=== PATIENT | male | born 1950 | race Caucasian/White ===

== ENCOUNTER 2024-01-09 20:22 | Emergency (ER) | payer MEDICARE, SELFPAY ==
[2024-01-09] VITALS (14 sets, daily range): BP systolic 86–158; BP diastolic 64–94; PULSE 87–102; RESP 16–19; TEMP 36; O2SAT 93–100
--- NOTE | ~2024-01-09 | CT_ITS ---
EXAMINATION: CT facial bones wo con DATE: 01/09/2024 21:55 INDICATION: Head injury. TECHNIQUE: Computed tomography (CT) of the facial bones and maxillofacial region was performed withou t intravenous contrast. Automated exposure control and iterative reconstruction technique were employ ed. The dose-length product was 406.89 mGy-cm. COMPARISON: None. FINDINGS: There is right scalp and right periorbital soft tissue swelling. There are likely changes o f ocular lens replacement surgeries. There is rightward deviation of superior nasal septum and leftwa rd deviation of inferior nasal septum. There is mucosal thickening and fluid in the paranasal sinuses . The mastoid air cells are normal. IMPRESSION: 1. No fracture. Reviewed, dictated and finalized at location A. IMPRESSION: 1. No fracture.
--- NOTE | ~2024-01-09 | CT_ITS ---
EXAMINATION: CT cervical spine wo con DATE: 01/09/2024 21:55 INDICATION: Head injury. TECHNIQUE: Computed tomography (CT) of the cervical spine was performed without intravenous contrast. Automated exposure control and iterative reconstruction technique were employed. The dose-length pro duct was 415.59 mGy-cm. COMPARISON: None FINDINGS: There is 5 degrees dextrocurvature of cervical spine. Vertebral body heights are normal. Th ere is mildly decreased disc height at C3-C4. There is moderately decreased disc height at C5-C6 and C6-C7. The following disc levels are specifically discussed: C2-C3: There is mild right and moderate left uncovertebral joint osteoarthritis. There is moderate ri ght and severe left facet joint osteoarthritis. There is mild left neural foraminal stenosis. There i s no central canal stenosis. C3-C4: There is severe bilateral uncovertebral joint osteoarthritis. There is mild right and severe l eft facet joint osteoarthritis. There is mild bilateral neural foraminal stenosis. There is mild cent ral canal stenosis. C4-C5: There is severe right and moderate left uncovertebral joint osteoarthritis. There is severe bi lateral facet joint osteoarthritis. There is mild bilateral neural foraminal stenosis. There is mild central canal stenosis. C5-C6: There is severe bilateral uncovertebral joint osteoarthritis. There is mild right and moderate left facet joint osteoarthritis. There is moderate bilateral neural foraminal stenosis. There is mod erate central canal stenosis. C6-C7: There is severe bilateral uncovertebral joint osteoarthritis. There is moderate bilateral face t joint osteoarthritis. There is severe bilateral neural foraminal stenosis. There is moderate centra l canal stenosis. C7-T1: There is mild bilateral uncovertebral joint osteoarthritis. There is severe bilateral facet stephanie int osteoarthritis. There is mild bilateral neural foraminal stenosis. There is no central canal sten osis. IMPRESSION: 1. No fracture. 2. Severe cervical spondylosis. Reviewed, dictated and finalized at location A.
--- NOTE | ~2024-01-09 | XR_ITS ---
EXAMINATION: XR abdomen gastric tube insert DATE: 01/09/2024 21:24 INDICATION: Orogastric tube placement. TECHNIQUE: A supine view of the abdomen was obtained. COMPARISON: None. FINDINGS: The lower abdomen is excluded. There is gaseous distention of the stomach. The orogastric t ube tip is in the stomach. IMPRESSION: 1. Orogastric tube tip in the stomach. Reviewed, dictated and finalized at location A.
--- NOTE | ~2024-01-09 | CT_ITS ---
EXAMINATION: CT brain wo con DATE: 01/09/2024 21:55 INDICATION: Unresponsive. Head injury. TECHNIQUE: Computed tomography (CT) of the head was performed without intravenous contrast. The mA wa s adjusted according to patient size. Iterative reconstruction technique was employed. The dose-lengt h product was 681.00 mGy-cm. COMPARISON: None FINDINGS: There is focal peripheral low attenuation in right frontal lobe. There is an infarct in lef t frontal lobe. There is no intracranial hemorrhage or abnormal mass lesion. The ventricles are leonela l in size. There is mucosal thickening in the paranasal sinuses. There are likely changes of ocular l ens replacement surgeries. There is right periorbital soft tissue swelling. There is right-sided scal p soft tissue swelling. The mastoid air cells are normal. IMPRESSION: 1. Peripheral low attenuation in right frontal lobe, likely a contusion. 2. 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 Reviewed, dictated and finalized at location A.
--- NOTE | ~2024-01-09 | CT_ITS ---
EXAMINATION: CT chest abdomen pelvis w con DATE: 01/09/2024 21:56 INDICATION: Trauma. Altered mental status. TECHNIQUE: Computed tomography (CT) of the chest, abdomen, and pelvis was performed with 100 mL Omnip aque 350 intravenous contrast. Automated exposure control and iterative reconstruction technique were employed. The dose-length product was 641.96 mGy-cm. COMPARISON: None FINDINGS: CHEST CT: The lungs demonstrate mild atelectasis in the right. Calcified right lung nodules are consistent with old granulomatous disease. No pleural effusion. The heart size is normal. No pericardial effusion. T he endotracheal tube tip is 5.7 cm above the irene. The nasogastric tube tip is in the stomach. Ther e is moderate thoracic spondylosis. ABDOMEN/PELVIS CT: The liver, gallbladder, pancreas, and adrenal glands are normal. There is cortical thinning in the ki dneys. There are cysts in left kidney measuring up to 16 mm. There is a Javed catheter in expected po sition. The bladder is distended. Stool distends the rectosigmoid. The prostate is mildly enlarged. T he appendix is normal. There are no pathologically enlarged lymph nodes. There is no free intraperito terrance fluid. There is severe lumbar spondylosis. IMPRESSION: 1. Stool distends the rectosigmoid. Reviewed, dictated and finalized at location A.
--- NOTE | ~2024-01-09 | XR_ITS ---
EXAMINATION: XR chest ET placement DATE: 01/09/2024 21:24 INDICATION: Intubation. TECHNIQUE: A single frontal view of the chest was obtained. COMPARISON: None. FINDINGS: There is no pneumonia, pleural effusion, or pneumothorax. The heart size is normal. The end otracheal tube tip is 7.7 cm above the irene. The nasogastric tube tip is in the stomach. IMPRESSION: 1. No acute cardiopulmonary disease. Reviewed, dictated and finalized at location A.
[2024-01-09] MEDS: LORazepam INJ (*CRX) 2 MG/ML VIAL (20:25)
[2024-01-09] MEDS: LORazepam INJ (*CRX) 2 MG/ML VIAL 4 MG ×2 (20:32→20:38)
--- NOTE | 2024-01-09 20:33 | ECG_ITS ---
Measurements Intervals [place] Rate: 86 P: 74 [place]: 175 QRS: -68 QRSD: 118 T: 62 QT: 423 QTc: 507 Interpretive Statements SINUS RHYTHM LEFT ANTERIOR FASCICULAR BLOCK ABNORMAL ECG NO PREVIOUS ECG AVAILABLE FOR COMPARISON Electronically Signed On 01-10-2024 19:40:09 CDT by Kd Caicedo D.O.
[2024-01-09 20:43] LABS: Basophils Percent Auto 0.2 % (0.2-1.2); Hematocrit 45.9 % (42.0-52.0); Hemoglobin 14.4 g/dL (14.0-18.0); Immature Granulocyte Absolute 0.24 K/mm3 (0.00-0.031); Immature Granulocyte Percent A 1.4 % (0-0.5); Lymphocytes Absolute Auto 0.79 K/mm3 (0.9-3.2); Lymphocytes Percent Auto 4.6 % (18.3-44.2); Mean Corpuscular HGB Conc 31.4 g/dl (32-36); Mean Corpuscular Volume 92.4 fl (80-100); Mean Platelet Volume 11.4 fl (7.4-10.4); Monocytes Absolute Auto 1.3 K/mm3 (0.1-0.6); Monocytes Percent Auto 7.8 % (2.6-8.5); Neutrophils Absolute Auto 14.7 K/mm3 (1.3-6.7); Platelet Count Result 220 k/mm3 (150-375); Red Blood Count 4.97 M/mm3 (4.6-6.20); Red Cell Distribution Width 13.9 % (11.5-14.5); White Blood Count 17.1 K/mm3 (4.5-10.0)
[2024-01-09] MEDS: NOREPINEPHRINE 8 MG/D5W 250 ML 8 MG/250 ML BAG 15 MG IV CONT (20:43)
[2024-01-09] MEDS: levETIRAcetam 500MG/NACL 100ML 500 MG/100 ML BAG 400 MG IVPB (20:43)
--- NOTE | 2024-01-09 20:54 | PC.NURSE ---
pt presents with multiple wounds all over the body that appears not new, mostly the right side. pt has a black eye with dried bloody nose, as well as multiple skin tears to the right shoulder, chest, leg, and cheek
[2024-01-09 20:59] LABS: INR 1.1; Prothrombin Time 14.3 Seconds (11.1-14.7)
[2024-01-09 21:02] LABS: Alanine Aminotransferase 91 U/L (6-50); Albumin Level 4.1 g/dL (3.5-5.1); Alkaline Phosphatase 97 U/L (38-126); Anion Gap 28 mmol/L (4-12); Aspartate Amino Transferase 165 U/L (17-59); Bilirubin,Total 0.7 mg/dL (0.2-1.3); Blood Urea Nitrogen 93 mg/dL (9-20); Calcium 9.3 mg/dL (8.4-10.2); Carbon Dioxide 8 mmol/L (22-30); Chloride 105 mmol/L (98-107); Estimated CRCL calculation 21 ml/min; Estimated Glomerular Filt Rate 21; Sodium 141 mmol/L (137-145)
[2024-01-09] MEDS: FENTANYL 2,500MCG/NS250ML(*CRX 2,500 MCG/250 ML BAG IV CONT (21:08)
[2024-01-09] MEDS: PROPOFOL IV EMULSION 100 ML 2.19 MG IV CONT (21:08)
[2024-01-09 21:12] LABS: Glucose 686 mg/dL (65-110)
[2024-01-09] MEDS: SODIUM CHLORIDE 0.9% IV 1,000 ML 999 ML IV CONT (21:20)
[2024-01-09 21:33] LABS: Appearance Urine Clear (Clear); Bacteria Urine None Seen /hpf; Bilirubin Urine Negative (Negative); Blood Urine 3+ (Negative); Color Urine Yellow (Yellow); Glucose Urine UA 3+ mg/dL (Negative); Ketones Urine 2+ mg/dL (Negative); Leukocyte Esterase Ur Negative LEU/UL (Negative); Nitrate Urine Negative (Negative); Non Pathogenic Casts 0-2; Protein Urine 1+ mg/dL (Negative); Specific Grav Ur 1.027 (1.001-1.035); Squamous Epithelial Cell Urine Occasional /hpf (Few); Urobilinogen Urine 0.2 mg/dL (<2.0); WBC Urine 0-5 /hpf (0-3)
[2024-01-09 21:54] LABS: Add Urine Microscopic? YES
[2024-01-09 21:58] LABS: Troponin I 0.028 ng/mL (0.000-0.034)
--- NOTE | 2024-01-09 21:58 | ED.GENADULT ---
HPI - General Adult General Chief complaint: Unspecified Stated complaint: ams Time Seen by Provider: 01/09/24 20:36 History of Present Illness HPI narrative: Patient is a 73-year-old male with history of diabetes, CAD here after being found down unresponsive. Family notes that they last spoke with him about 2 days ago. Today someone went over to his home to invite him to [facility] and he did not answer the door. Another family member went over to the house and broke into the home, he was found pinned behind the door. he was found to be unresponsive, glucose was greater than detected by EMS, eye gel was placed to support respirations and he was brought into the emergency department with bagging respirations. Related Data Home Medications Medication Instructions Recorded Confirmed finasteride 1 mg tablet 1 mg PO DAILY 02/23/23 07/29/23 rivaroxaban 20 mg tablet (Xarelto) 20 mg PO DAILY 02/23/23 07/29/23 sildenafil 100 mg tablet 100 mg PO DAILY PRN 02/23/23 07/29/23 metformin 500 mg tablet 1,000 mg PO BID 07/29/23 07/29/23 Allergies Allergy/AdvReac Type Severity Reaction Status Date / Time No Known Allergies Allergy Unknown Verified 07/29/23 10:19 Review of Systems Review of Systems: ROS unobtainable: Yes unobtainable due to endotracheal tube PMFSH Past Medical History Medical History Arthritis Family History Family History Father Hypertension Heart disease Cerebrovascular accident Mother Hypertension Cancer Sibling Cancer Diabetes mellitus Social History Social History (Updated 07/29/23 @ 10:31 by Heather Jones) Smoking packs per day: 1.5 Smoking cigarettes per day: 30.0 Years smoked: 15 Smoking pack-years: 22.50 Smoking status: Former smoker Alcohol intake: never Substance use: never Lack of Transportation: No Lack of Food: Never True Current Housing: I Have Housing Concerned About Future Housing: No Difficulty Paying Gas/Electric Bills: No Difficulty Paying for Meds: Decline to Answer Currently Unemployed: YES Education: Trade/Vocational Certificate Difficulty w/ Childcare or Family Care: Decline to Answer Exam Narrative: GENERAL: Cachectic, ill-appearing HEAD: Normocephalic EYES: Minimally responsive pupils bilaterally, swelling, erythema in the right periorbital region. ENT: Nares clear. Mucous membranes dry NECK: Supple. CHEST: Bagging respirations via [place] HEART: Regular rate and rhythm. Normal peripheral pulses. ABDOMEN: Soft, nondistended. EXTREMITIES: 2 cm Pressure ulcer present over the left shoulder. SKIN: Warm, dry, multiple areas of skin breakdown from pressure ulcers including a 2x3 cm area over the right cheek which is dark blue in color. NEURO: unresponsive, posturing with bilateral upper and lower extremity Course Course Emergency Course: Patient seen evaluated on EMS arrival. Respirations being bagged be igel airway. Patient appears to have some spontaneously triggered breath over the bagging. Patient placed in a C-collar, on exam multiple episodes of decerebrate posturing vs seizure like activity noted. 3 doses of ativan given, will load with keppra. Patient hypotensive, lowest blood pressure 70s over 50s systolic, multiple doses of push dose epinephrine given to patient pre intubation to improve blood pressure prior to RSI. ET tube placed by myself without difficulty. Patient started on norepinephrine drip, sedation initiated with fentanyl, propofol. Patient taken to CT. At this point I have concern that patient will require transfer to higher level of care in the context of multiple episodes of possible seizure-like activity, need for MRI will a ventilator as well as concern for traumatic injury. Flight team was contacted to be on standby. WBC of 17.1, patient started on vancomycin and cefepime for br
[2024-01-09 22:02] LABS: CRP 8.9 mg/dL (<1.0)
[2024-01-09 22:17] LABS: Creatine Kinase 6762 U/L (55-170)
[2024-01-09 22:28] LABS: Lactic Acid Reflex 1.6 mmol/L (0.7-2.0)
[2024-01-09] MEDS: levETIRAcetam IV 4,500 MG in DEXTROSE 5% 100 ML 870 MG IVPB (22:45)
[2024-01-09 22:47] LABS: Alveolar/Arterial O2 Gradient 98.3 mmHg; Base Excess ABG -19.7 mEq/l (+/-2.0); Fractional Inspired Oxygen 100 %; HCO3 ABG 9.8 mEq/l (22.0-26.0); Oxygen Content ABG 28.2 %vol (16.0-22.0); Oxygen Saturation ABG 99.8 % (95.0-100.0); Oxyhemoglobin 98.3 % THb (90.0-100.0); PCO2 ABG 35.6 mmHg (35.0-45.0); PO2 ABG < 570.0 mmHg (80.0-100.0); PO2 FiO2 Ratio Arterial Blood 5.79 %; Total Hemoglobin 19.3 g/dL (12.0-18.0)
[2024-01-09 22:48] LABS: pH ABG 7.059 (7.350-7.450)
[2024-01-09 22:49] LABS: Arterial Blood Gas PEEP 5 cmH2O; Arterial Blood Gas Vent Mode CMV; Arterial Blood Gas Ventilator rate 16 /MIN; Device VENTILATOR; Modified Allen's Test Pass; Site Drawn RIGHT RADIAL
[2024-01-09 22:50] LABS: Arterial Blood Gas Tidal Volume 500 ml
[2024-01-09 23:02] LABS: Glucose Point of Care > 500 mg/dl (65-105)
--- NOTE | 2024-01-09 23:22 | PC.NURSE ---
norepinephrine was discontinued to be restarted in helicopter
--- NOTE | 2024-01-09 23:28 | PC.NURSE ---
pt to the ED via ems @2022 after found unresponsive in a cluttered home. ems is unsure if this is the pt home. please see chart for further details on skin assessment. Pt began posturing and MD verbal ordered ativan 2mg IV, given at 2025. a repeat dose was ordered and given at 2032 and again at 2037. At [address] Cardona verbal order requested Keppra bolus 500mg over 15 minutes. At 2042 EDP mixed Epi and NS 0.9% and administered total of 10cc to pt IV. MD VORB of norepinephrine drip at 10mcg/min IV. At 2048 administered 2mg Ativan per MD verbal order read back. MD VORB 20mg of etomidate and 100mg of Rocuronium to prepare for intubation. Md successfully intubated pt with 7.5 tube and 25 at the teeth. MD VORB fentanyl drip at 25mcg/hr and propofol 5mcg/kg/min. OG tube inserted positioned at 60 and the gums and KUB ordered. tape used to secure OG placement. xray came down with portable imaging at 2112 for KUB confirmation. [facility] arrived to ED at 2114. pt was officially to CT at 2139. Please see chart for vitals, focused assessment, and further medication details.
== END 2024-01-09 22:30 | disposition short-term general hospital (02) ==
PROVIDERS: Emergency Provider Student in an Organized Health Care Education/Training Program; PCP Emergency Medicine
DX: N17.9 Acute kidney failure, unspecified (principal); J96.01 Acute respiratory failure with hypoxia; E11.10 Type 2 diabetes mellitus with ketoacidosis without coma; Z79.84 Long term (current) use of oral hypoglycemic drugs; S00.83XA Contusion of other part of head, initial encounter; X58.XXXA Exposure to other specified factors, initial encounter; L89.899 Pressure ulcer of other site, unspecified stage; Z87.891 Personal history of nicotine dependence; M19.90 Unspecified osteoarthritis, unspecified site
CPT/HCPCS: 31500; 36415; 36600; 70450; 70486; 71260; 72125; 74177; 80053; 81001; 82550; 82805; 82948; 83605; 84484; 85025; 85610; 85730; 86140; 93005; 96365; 96366; 96367; 96368; 96375; 96376; 99291; J0171; J1953; J2060; J2250; J2704; J3010; J7030; J7120; Q9967